=== PATIENT | female | born 1985 | race Caucasian/White ===

== ENCOUNTER 2017-10-22 14:30 | Emergency (ER) | payer MEDICAID ==
[~2017-10-22] VITALS: Ht 160 cm; Wt 59.5 kg
[2017-10-22] MEDS ORDERED: QUET200T PO (14:42)
[2017-10-22] MEDS ORDERED: CLON.5 PO (14:42)
[2017-10-22] MEDS ORDERED: PROZ10 PO (14:42)
[2017-10-22 16:10] VITALS: BP 121/84
== END 2017-10-22 16:10 | disposition home or self-care (01) ==
LOC: EMS 14:32
DX: G40.909 Epilepsy, unspecified, not intractable, without status epilepticus (principal); F12.90 Cannabis use, unspecified, uncomplicated; F17.210 Nicotine dependence, cigarettes, uncomplicated; Z02.89 Encounter for other administrative examinations; Z88.5 Allergy status to narcotic agent
CPT/HCPCS: 99283